=== PATIENT | male | born 1955 | race Caucasian/White ===

== ENCOUNTER 2018-09-07 15:18 | Inpatient (IN) ==
--- NOTE | 2018-09-07 21:08 | Internal Med History&Physical ---
Date of Encounter: 09/07/18 Time of Encounter: 21:05 Internal Medicine - H&P: HPI Chief complaint: Flank pain Admitted From: Intrahospital Transfer Plans for Post Hospital Care: Home History of present illness: Mr. Adams is a 63 year old male with past medical history of hx of recurrent renal calculi, HTN, DM-II, TIA (recently diagnosed [place] the [place]), ? memory loss, mood disorder who was transferred from the [facility] because of 6 mm renal calculi. He is an over all poor historian due to memory changes from recent TIA. HE uses a wheel chair to ambulate. According to [place] ED physician, pt was transferred from the [facility] due to 6 mm renal calculi. Pt states he had originally been admitted to the [facility] about a month ago and was discharged 3 weeks ago. States he went back in about one week ago but does not recall why he went back to the [facility]. At [facility] CT abd and pelvis Sep 06 2018 showed 6mm Calculus at left ureterovesical junction. and mild to moderate hydronephrosis Case discussed with urology and pt transferred to [place] for further management. Labs sep 05 2018 WBC 4.9, hgb 12.9, Na 138, K 3.4, mag Past Med Surg Social Fam HX - Past Medical History Medical history: arthritis, CVA, diabetes, glaucoma, hyperlipidemia, osteoporosis Additional medical history: Gout, diastolic heart failure, obesity, kidney stones Psychiatric history: depression - Past Surgical History Surgical History: cataract - Social History Smoking Status: Unknown if ever smoked Smokeless Tobacco Status: No Alcohol use: none Drug use: none - Family History Mother History Unknown: Yes Living Status: Father Living Status: Hx Family Cardiac Disorders: Yes Internal Medicine - H&P: Meds Allopurinol [Zyloprim] 300 mg PO DAILY 09/07/18 [History] Atorvastatin [Lipitor] 40 mg PO HS 09/07/18 [History] Chlorhexidine Rinse 15 ml MM BID 09/07/18 [History] Clopidogrel [Plavix] 75 mg PO DAILY 09/07/18 [History] DULoxetine [Cymbalta] 60 mg PO DAILY 09/07/18 [History] Furosemide [Lasix] 40 mg PO DAILY 09/07/18 [History] Insulin Regular Human [HumuLIN R] 0 unit 09/07/18 [History] Latanoprost/Pf [Latanoprost 0.005% Eye Drop] 7.5 ml OP DAILY 09/07/18 [History] Miconazole Nitrate [Lotrimin AF] TP BID 09/07/18 [History] Pioglitazone [Actos] 45 mg PO DAILY 09/07/18 [History] Tamsulosin [Flomax] 0.4 mg PO DAILY 09/07/18 [History] Timolol Maleate 0.5% 1 drop OP DAILY 09/07/18 [History] amLODIPine [Norvasc] 10 mg PO DAILY 09/07/18 [History] Allergy/AdvReac Type Severity Reaction Status Date / Time olmesartan [From Benicar] AdvReac Hypotension Verified 09/07/18 20:47 All Systems PM: A 10-system review of systems was performed and is negative for pertinent findings except as documented above in the HPI. - Constitutional Vitals: Temp Pulse Resp BP Pulse Ox 98.1 F 88 14 118/78 98 09/07/18 18:27 09/07/18 18:27 09/07/18 18:27 09/07/18 18:27 09/07/18 18:27 General appearance: Present: A&O X 3 Exam: . - Head Head exam: Present: atraumatic, normocephalic - Eye Eye exam: Present: PERRL, conjuntiva pink, sclera anicteric Pupils: Present: PERRL - Neck Neck exam general surgery: Present: supple, trachea midline. Absent: lymphadenopathy - Respiratory Respiratory exam: Present: CTAB. Absent: accessory muscle use, rales, rhonchi, wheezes - Cardiovascular Cardiovascular exam: Present: RRR, +S1, +S2. Absent: diastolic murmur, gallop, rubs, systolic murmur - GI/Abdominal GI/Abdominal exam: Present: normal bowel sounds, soft, no peritoneal signs. Absent: distended, tenderness - Extremities Exam Extremities exam: Present: warm, radial pulses palpable and symmetrical. Absent: calf tenderness, cyanotic, pedal edema - Neurological Exam Neurological exam: Present: CN II-XII intact, oriented X3, no focal deficits. Absent: pronater drift, facial droop, speech deficit - Skin Skin exam: Present: dry, intact - Assessment and plan (1) Renal calculi Current Visit: Yes Status: Acute Assessment and plan: Pt does not report flank pain at this time. States he gets kidney stones and generally passes them. (2) HTN (hypertension) Current Visit: Yes Status: Acute Assessment and plan: [facility] Qualifiers: Qualified Code(s): I10 - Essential (primary) hypertension (3) Type II diabetes mellitus Current Visit: Yes Status: Acute Assessment and plan: Will place on SSI and resume home medication. Will monitor glucose. Qualifiers: Qualified Code(s): E11.9 - Type 2 diabetes mellitus without complications (4) History of stroke Current Visit: Yes Status: Acute Assessment and plan: [facility] seen [place] [facility] [place] a few weeks ago for this. Resume on statin and plavix - Time Spent With Patient Total time spent is greater than 50% in coordination of care (as documented) at patient's floor/unit and/or counseling patient: 25 - 35 minutes
[2018-09-07] MEDS ORDERED: Naloxone 0.4 MG/ML INJ IVP PRN (21:09)
[2018-09-07] MEDS ORDERED: Acetaminophen 325 MG TABLET PO PRN (21:09)
[2018-09-07] MEDS ORDERED: Dextrose Gel 15 GM/37.5 ML TUBE PO PRN ×2 (21:20)
[2018-09-07] MEDS ORDERED: D5% in Water 1,000 ML IVC PRN (21:20)
[2018-09-07] MEDS ORDERED: *HR* Dextrose 50 % in Water (Syg) 50 ML SYRINGE IVP PRN (21:20)
[2018-09-07 22:59] LABS: Basophils % 0.5 %; Eosinophils # 0.1 K/mcL (0.0-0.6); Eosinophils % 1.1 %; Hematocrit 36.3 % (37.5-50.1); Immature Granulocytes % 0.2 % (0-4); Lymphocytes % 17.6 %; Mean Corpuscular HGB Conc 33.1 g/dL (31.6-35.5); Mean Corpuscular Hemoglobin 33.5 pg (28.0-33.3); Mean Corpuscular Volume 101.4 fL (83.0-100.0); Mean Platelet Volume 12.1 fL (9.4-12.4); Monocytes # 0.4 K/mcL (0.0-1.3); Monocytes % 6.9 %; Neutrophils # 4.1 K/mcL (1.6-8.9); Platelet Count 110 K/mcL (140-400); Red Blood Count 3.58 M/mcL (4.19-5.50); Red Cell Distribution Width 14.5 % (11.5-14.5); Segmented Neutrophils % 73.7 %
[2018-09-07 23:15] LABS: Calcium 9.2 mg/dL (8.6-10.3); Magnesium 1.6 mg/dL (1.6-2.6); Potassium 3.6 mEq/L (3.5-5.1)
[2018-09-08 01:18] LABS: Bilirubin,Urine Negative (Negative); Blood,Urine Moderate (Negative); Clarity,Urine Clear (Clear); Color,Urine Yellow (Yellow); Glucose,Urine (UA) Normal (Normal); Ketones,Urine Negative (Negative); Leukocyte Esterase,Urine Negative (Negative); Nitrite,Urine Negative (Negative); Protein,Urine Trace mg/dL (Neg-Trace); Specific Gravity,Urine 1.015 (1.010-1.025); Urobilinogen,Urine Normal (Normal)
[2018-09-08 01:21] LABS: Bacteria,Urine None Seen per hpf (None-Few); Hyaline Casts,Urine None Seen per lpf (None-Few); Squamous Epithelial Cell,Urine None Seen per lpf (None-Few); WBC,Urine 0-3 per hpf (0-3)
[2018-09-08] MEDS: *HR* HYDROcodone/Acet 5/325 mg TABLET PO PRN (01:39)
[2018-09-08 05:22] LABS: Basophils % 0.4 %; Eosinophils # 0.1 K/mcL (0.0-0.6); Eosinophils % 2.1 %; Hemoglobin 11.1 g/dL (12.9-16.9); Immature Granulocytes % 0.4 % (0-4); Lymphocytes # 1.3 K/mcL (0.6-4.6); Lymphocytes % 24.9 %; Mean Corpuscular HGB Conc 32.6 g/dL (31.6-35.5); Mean Corpuscular Hemoglobin 32.9 pg (28.0-33.3); Mean Corpuscular Volume 100.9 fL (83.0-100.0); Mean Platelet Volume 12.2 fL (9.4-12.4); Monocytes # 0.5 K/mcL (0.0-1.3); Monocytes % 9.9 %; Neutrophils # 3.2 K/mcL (1.6-8.9); Platelet Count 106 K/mcL (140-400); Red Blood Count 3.37 M/mcL (4.19-5.50); Red Cell Distribution Width 14.6 % (11.5-14.5); Segmented Neutrophils % 62.3 %
[2018-09-08 05:40] LABS: Calcium 8.8 mg/dL (8.6-10.3); Potassium 3.2 mEq/L (3.5-5.1)
[2018-09-08] MEDS: Insulin LISPRO 300 UNITS/3 ML VIAL SQ SCH ×3 (08:10→17:23)
[2018-09-08] MEDS: amLODIPine 5 MG TABLET PO SCH (08:14)
[2018-09-08] MEDS: Furosemide 40 MG TABLET PO SCH (08:14)
--- NOTE | 2018-09-08 08:52 | Urology - Consult Note ---
Date of Encounter: 09/08/18 Time of Encounter: 08:49 - Assessment and Plan (1) Left ureteral stone Current Visit: Yes Status: Acute Assessment and plan: We will plan on seeing if the patient can pass his stone spontaneously with IV fluids. If patient fails to elicit will be scheduled tomorrow for stone extraction. (2) Type II diabetes mellitus Current Visit: Yes Status: Acute Assessment and plan: Patient will need tight blood sugar control while in the hospital. Patient was placed on diabetic diet. Qualifiers: Qualified Code(s): E11.9 - Type 2 diabetes mellitus without complications Urology CN:HPI Consult date: 09/08/18 Reason for consult Urology: Hydronephrosis Requesting physician: Fiorella Urias History of present illness: Hill is a 63-year-old male who was transferred from the [facility] yesterday secondary to having a left ureteral stone. Patient states that his pain is controlled at this time. Patient would like to have his stone removed. Patient currently denies any nausea or vomiting. No fevers. Pain is a 0 out of 10 with no radiation at this time. Patient does have relatively poorly controlled diabetes. His blood sugar was above 200 upon admission. Past Med Surg Social Fam HX - Past Medical History Medical history: arthritis, CVA, diabetes, glaucoma, hyperlipidemia, osteoporosis Additional medical history: Gout, diastolic heart failure, obesity, kidney sto oumar Psychiatric history: depression - Past Surgical History Surgical History: cataract - Social History Smoking Status: Unknown if ever smoked Smokeless Tobacco Status: No Alcohol use: none Drug use: none - Family History Mother History Unknown: Yes Living Status: Father Living Status: Hx Family Cardiac Disorders: Yes Medications and Allergies Allopurinol [Zyloprim] 300 mg PO DAILY 09/07/18 [History] Atorvastatin [Lipitor] 40 mg PO HS 09/07/18 [History] Chlorhexidine Rinse 15 ml MM BID 09/07/18 [History] Clopidogrel [Plavix] 75 mg PO DAILY 09/07/18 [History] DULoxetine [Cymbalta] 60 mg PO DAILY 09/07/18 [History] Furosemide [Lasix] 40 mg PO DAILY 09/07/18 [History] Insulin Regular Human [HumuLIN R] 0 unit 09/07/18 [History] Latanoprost/Pf [Latanoprost 0.005% Eye Drop] 1 drop BOTH EYES DAILY 09/07/18 [History] Miconazole Nitrate [Lotrimin AF] TP BID 09/07/18 [History] Pioglitazone [Actos] 45 mg PO DAILY 09/07/18 [History] Tamsulosin [Flomax] 0.4 mg PO DAILY 09/07/18 [History] Timolol Maleate 0.5% 1 drop BOTH EYES DAILY 09/07/18 [History] amLODIPine [Norvasc] 10 mg PO DAILY 09/07/18 [History] Allergy/AdvReac Type Severity Reaction Status Date / Time olmesartan [From [facility]] AdvReac Hypotension Verified 09/07/18 20:47 Review of Systems - Constitutional no chills, no fever(s) - EENT Nose, mouth and throat: no dizziness - Cardiovascular no dyspnea - Respiratory no cough, no dyspnea - Gastrointestinal no abdominal pain, no nausea, no vomiting - Musculoskeletal no back pain, no muscle weakness - Integumentary no erythema, no swelling - Neurological no sensory deficit - Psychiatric no confusion, no depression - Hematologic/Lymphatic no easy bleeding, no lymphadenopathy - Allergic/Immunologic no wheezing Exam Initial Vital Signs Temp Pulse Resp BP Pulse Ox 98.1 F 88 14 118/78 98 09/07/18 18:27 09/07/18 18:27 09/07/18 18:27 09/07/18 18:27 09/07/18 18:27 General/Neuological: alert and oriented x 3 Eyes: normal pupils, non-icteric Neck: no lymphadenopathy noted, supple to touch Cardiovascular: RRR, no murmurs Respiratory: normal respiratory effort, clear bilaterally ABD: soft, nontender, no masses palpated, good bowel sounds Back: no pain on percussion bilaterally Skin: no rashes noted Musculoskeletal: normal gait, FROMx4 Urology Results - Labs 09/08/18 05:08 09/08/18 05:08 Abnormal lab results RBC 3.37 M/mcL (4.19-5.50) L 09/08/18 05:08 Hgb 11.1 g/dL (12.9-16.9) L 09/08/18 05:08 Hct 34.0 % (37.5-50.1) L 09/08/18 05:08 MCV 100.9 fL (83.0-100.0) H 09/08/18 05:08 RDW 14.6 % (11.5-14.5) H 09/08/18 05:08 Plt Count 106 K/mcL (140-400) L 09/08/18 05:08 Potassium 3.2 mEq/L (3.5-5.1) L 09/08/18 05:08 Carbon Dioxide 30 mEq/L (23-29) H 09/08/18 05:08 BUN 30 mg/dL (8-23) H 09/08/18 05:08 Creatinine 1.85 mg/dL (0.70-1.30) H 09/08/18 05:08 Est GFR ( Amer) 45 (> 60) L 09/08/18 05:08 Est GFR (Non-Af Amer) 37 (> 60) L 09/08/18 05:08 Glucose 144 mg/dL (70-105) H 09/08/18 05:08 Urine Blood Moderate (Negative) H 09/08/18 01:00 Urine Microscopic RBC 3-5 per hpf (0-3) H 09/08/18 01:00 Diabetes panel 09/07/18 09/08/18 Range/Units 22:42 05:08 Sodium 137 138 (136-145) mEq/L Potassium 3.6 3.2 L (3.5-5.1) mEq/L Chloride 100 100 (98-107) mEq/L Carbon Dioxide 32 H 30 H (23-29) mEq/L BUN 32 H 30 H (8-23) mg/dL Creatinine 2.05 H 1.85 H (0.70-1.30) mg/dL Glucose 202 H 144 H (70-105) mg/dL Calcium 9.2 8.8 (8.6-10.3) mg/dL Calcium panel 09/07/18 09/08/18 Range/Units 22:42 05:08 Calcium 9.2 8.8 (8.6-10.3) mg/dL Pituitary panel 09/07/18 09/08/18 Range/Units 22:42 05:08 Sodium 137 138 (136-145) mEq/L Potassium 3.6 3.2 L (3.5-5.1) mEq/L Chloride 100 100 (98-107) mEq/L Carbon Dioxide 32 H 30 H (23-29) mEq/L BUN 32 H 30 H (8-23) mg/dL Creatinine 2.05 H 1.85 H (0.70-1.30) mg/dL Glucose 202 H 144 H (70-105) mg/dL Calcium 9.2 8.8 (8.6-10.3) mg/dL Adrenal panel 09/07/18 09/08/18 Range/Units 22:42 05:08 Sodium 137 138 (136-145) mEq/L Potassium 3.6 3.2 L (3.5-5.1) mEq/L Chloride 100 100 (98-107) mEq/L Carbon Dioxide 32 H 30 H (23-29) mEq/L BUN 32 H 30 H (8-23) mg/dL Creatinine 2.05 H 1.85 H (0.70-1.30) mg/dL Glucose 202 H 144 H (70-105) mg/dL Calcium 9.2 8.8 (8.6-10.3) mg/dL All other labs normal. Consult Discharge Plan - Plan [facility]errals: [facility] [Primary Care Provider] -
[2018-09-08] MEDS: Latanoprost 2.5 ML BOTTLE BOTH EYES SCH (09:43)
[2018-09-08] MEDS: Miconazole 2% ointment 114 GM TUBE TP SCH ×2 (09:43→20:24)
--- NOTE | 2018-09-08 18:29 | Internal Med Progress Note ---
Hospitalist Progress Note - Encounter Date of Encounter: 09/08/18 Time of Encounter: 18:23 - Subjective Interval History: Pt denies having flank pain this morning. He denies fever, chills, N/V or diarrhea. He denies CP or SOB. - Exam Vitals: Temp Pulse Resp BP Pulse Ox 97.6 F 88 15 118/69 93 09/08/18 15:21 09/08/18 15:21 09/08/18 15:21 09/08/18 15:21 09/08/18 15:21 Exam: General appearance: Present: A&O X 3 Exam: - Head Head exam: Present: atraumatic, normocephalic - Eye Eye exam: Present: PERRL, conjuntiva pink, sclera anicteric Pupils: Present: PERRL - Neck Neck exam general surgery: Present: supple, trachea midline. Absent: lymphadenopathy - Respiratory Respiratory exam: Present: CTAB. Absent: accessory muscle use, rales, rhonchi, wheezes - Cardiovascular Cardiovascular exam: Present: RRR, +S1, +S2. Absent: diastolic murmur, gallop, rubs, systolic murmur - GI/Abdominal GI/Abdominal exam: Present: normal bowel sounds, soft, no peritoneal signs. Absent: distended, tenderness - Extremities Exam Extremities exam: Present: warm, radial pulses palpable and symmetrical. Absent: calf tenderness, cyanotic, pedal edema - Neurological Exam Neurological exam: Present: CN II-XII intact, oriented X3, no focal deficits. Absent: pronater drift, facial droop, speech deficit - Skin Skin exam: Present: dry, intact - Assessment and Plan (1) Renal calculi Current Visit: Yes Status: Acute Assessment and Plan: Pt does not report flank pain at this time. States he gets kidney stones and generally passes them. Seen by Urology and states continue on fluids for now and hopefully he passes the stone. If not possible stone extraction 09/09/2018. (2) HTN (hypertension) Current Visit: Yes Status: Acute Assessment and Plan: [place] (3) Type II diabetes mellitus Current Visit: Yes Status: Acute Assessment and Plan: Will place on SSI and resume home medication. Will continue to monitor glucose. (4) History of stroke Current Visit: Yes Status: Acute Assessment and Plan: Pt seen at the [place] a few weeks ago for was what documented as TIA. Resume on statin and plavix DVT Prophylaxis: SCD - Summary of Assessment and Plan Summary of Assessment and Plan: Mr. Adams is a 63 year old male with past medical history of hx of recurrent renal calculi, HTN, DM-II, TIA (recently diagnosed at the [place]), ? memory loss, mood disorder who was transferred from the [place] because of 6 mm renal calculi. He is an over all poor historian due to memory changes from recent TIA. He uses a wheel chair to ambulate. According to [place] ED physician, pt was transferred from the [place] due to 6 mm renal calculi. Pt states he had originally been admitted to the [place] about a month ago and was discharged 3 weeks ago. States he went back in about one week ago but does not recall why he went back to the [place]. - Time Spent with Patient Total time spent is greater than 50% in coordination of care (as documented) at patient's floor/unit and/or counseling patient: less than 15 minutes Plan of Care Discussed with: patient Internal Medicine: Result - Labs CBC & Chem 7: 09/08/18 05:08 09/08/18 05:08 Labs: Short CBC 09/07/18 09/08/18 Range/Units 22:42 05:08 WBC 5.6 5.1 (4.3-11.1) K/mcL Hgb 12.0 L 11.1 L (12.9-16.9) g/dL Hct 36.3 L 34.0 L (37.5-50.1) % Plt Count 110 L 106 L (140-400) K/mcL Neutrophils # 4.1 3.2 (1.6-8.9) K/mcL BMP 09/07/18 09/08/18 22:42 05:08 Sodium 137 138 Potassium 3.6 3.2 L Chloride 100 100 Carbon Dioxide 32 H 30 H BUN 32 H 30 H Creatinine 2.05 H 1.85 H Glucose 202 H 144 H Calcium 9.2 8.8 Urine 09/08/18 Range/Units 01:00 Urine Color Yellow (Yellow) Urine Clarity Clear (Clear) Urine pH 6.0 (5.0-8.0) pH Units Ur Specific [place] 1.015 (1.010-1.025) Urine Protein Trace (Neg-Trace) mg/dL Urine Glucose (UA) Normal (Normal) mg/dL Consult Discharge Plan - Plan [facility]errals: [facility] [Primary Care Provider] - (2) HTN (hypertension) Qualifiers: Qualified Code(s): I10 - Essential (primary) hypertension (3) Type II diabetes mellitus Qualifiers: Qualified Code(s): E11.9 - Type 2 diabetes mellitus without complications
[2018-09-08] MEDS ORDERED: D5% in Water 1,000 ML IVC PRN (18:38)
[2018-09-08] MEDS ORDERED: *HR* Dextrose 50 % in Water (Syg) 50 ML SYRINGE IVP PRN (18:38)
[2018-09-08] MEDS ORDERED: Dextrose Gel 15 GM/37.5 ML TUBE PO PRN ×2 (18:38)
[2018-09-08 20:49] LABS: Estimated Average Glucose 148 mg/dl; Hemoglobin A1C 6.8 %
--- NOTE | 2018-09-09 07:23 | Urology Progress Note ---
Date of Encounter: 09/09/18 Time of Encounter: 07:22 - Assessment and Plan (1) Left ureteral stone Current Visit: Yes Status: Acute Assessment and plan: patient passed stone. will cancel surgery. ok to discharge from urology sta ndpoint. will have office get follow up appt through the [place]. (2) Type II diabetes mellitus Current Visit: Yes Status: Acute Qualifiers: Qualified Code(s): E11.9 - Type 2 diabetes mellitus without complications Progress Note Narrative: patient seen. patient passed large stone last night. no further pain. Objective Initial Vital Signs Temp Pulse Resp BP Pulse Ox 98.1 F 88 14 118/78 98 09/07/18 18:27 09/07/18 18:27 09/07/18 18:27 09/07/18 18:27 09/07/18 18:27 - General physical appearance Present: well developed, well nourished - Respiratory Present: normal expansion - Abdomen Present: soft. Absent: tender - Labs 09/08/18 05:08 09/08/18 05:08 Diabetes panel 09/08/18 Range/Units 18:45 Hemoglobin A1c 6.8 H ( - 5.6) % Consult Discharge Plan - Plan Referrals: Alvaro Winkler MD [Partnered Physician] - [place],PCP [Primary Care Provider] -
[2018-09-09] MEDS: Insulin LISPRO 300 UNITS/3 ML VIAL SQ SCH ×3 (07:43→18:16)
[2018-09-09] MEDS: Furosemide 40 MG TABLET PO SCH (07:50)
[2018-09-09] MEDS: amLODIPine 5 MG TABLET PO SCH (07:50)
[2018-09-09] MEDS: *HR* Pioglitazone 45 MG TABLET PO SCH (07:50)
--- NOTE | 2018-09-09 10:31 | Discharge Summary ---
- NOTES TO OUTPATIENT PROVIDER Notes to Outpatient Provider: PCP in 5 to 7 days Orders not resulted at time of discharge: Pending orders 09/08/18 01:00 Urinalysis Reflex Cult & Micro [URIN] Stat Date of Encounter: 09/09/18 Time of Encounter: 10:29 - Discharge Diagnosis (1) Renal calculi Priority: Primary Status: Acute Assessment and Plan: Pt does not report flank pain at this time. States he gets kidney stones and generally passes them. Seen by Urology and states continue on fluids and hopefully he passes the stone. Pt passed the stone over night so urology cancelled surgery and states ok to DC home. (2) Acute kidney injury Priority: Secondary Status: Acute Assessment and Plan: Present on admission. Slowly improving. BMP this am 09/09/2018 showed BUN and Cr. (3) HTN (hypertension) Priority: Secondary Status: Acute Assessment and Plan: [facility] Qualifiers: Qualified Code(s): I10 - Essential (primary) hypertension (4) Type II diabetes mellitus Priority: Secondary Status: Acute Assessment and Plan: Was placed on SSI, can resume home medication. Pt should continue to monitor glucose. Qualifiers: Qualified Code(s): E11.9 - Type 2 diabetes mellitus without complications (5) History of stroke Priority: Secondary Status: Acute Assessment and Plan: Pt seen at the [place] a few weeks ago for was what documented as TIA. Resume on statin and plavix Hospital course: Mr. Adams is a 63 year old male Discharge discussed with: patient - Time Spent with Patient Total time spent providing and/or coordinating discharge services: Greater than 30 minutes - Discharge Medications Home Medications: Allopurinol [Zyloprim] 300 mg PO DAILY 09/07/18 [History] Atorvastatin [Lipitor] 40 mg PO HS 09/07/18 [History] Clopidogrel [Plavix] 75 mg PO DAILY 09/07/18 [History] DULoxetine [Cymbalta] 60 mg PO DAILY 09/07/18 [History] Furosemide [Lasix] 40 mg PO DAILY 09/07/18 [History] Latanoprost/Pf [Latanoprost 0.005% Eye Drop] 1 drop BOTH EYES DAILY 09/07/18 [History] Pioglitazone [Actos] 45 mg PO DAILY 09/07/18 [History] Tamsulosin [Flomax] 0.4 mg PO DAILY 09/07/18 [History] Timolol Maleate 0.5% 1 drop BOTH EYES DAILY 09/07/18 [History] amLODIPine [Norvasc] 10 mg PO DAILY 09/07/18 [History] Allergies/Adverse Reactions: Allergy/AdvReac Type Severity Reaction Status Date / Time olmesartan [From Benicar] AdvReac Hypotension Verified 09/07/18 20:47 Date of admission: 09/07/18 18:01 [facility] care physician[facility] Consults: 09/07/18 21:12 Consult to Urology [CONS] Routine Consulting Provider: Urology Megan Reason for Consult: renal calculi Call Completed: Yes Discharging clinician: Fiorella Urias Anticipated date of discharge: 09/09/18 - Constitutional Vitals: Temp Pulse Resp BP Pulse Ox 97.6 F 97 16 125/69 95 09/09/18 06:44 09/09/18 06:44 09/09/18 06:44 09/09/18 06:44 09/09/18 06:44 General appearance: Present: A&O X 3 Exam: General appearance: Present: A&O X 3 Exam: - Head Head exam: Present: atraumatic, normocephalic - Eye Eye exam: Present: PERRL, conjuntiva pink, sclera anicteric Pupils: Present: PERRL - Neck Neck exam general surgery: Present: supple, trachea midline. Absent: lymph adenopathy - Respiratory Respiratory exam: Present: CTAB. Absent: accessory muscle use, rales, rhonchi, wheezes - Cardiovascular Cardiovascular exam: Present: RRR, +S1, +S2. Absent: diastolic murmur, gallop, rubs, systolic murmur - GI/Abdominal GI/Abdominal exam: Present: normal bowel sounds, soft, no peritoneal signs. Absent: distended, tenderness - Extremities Exam Extremities exam: Present: warm, radial pulses palpable and symmetrical. Absent: calf tenderness, cyanotic, pedal edema - Neurological Exam Neurological exam: Present: CN II-XII intact, oriented X3, no focal deficits. Absent: pronater drift, facial droop, speech deficit - Skin Skin exam: Present: dry, intact - Patient Status Disposition: Home, Self-Care Condition: Good Overall status at discharge: patient is back to baseline - Discharge Instructions Follow Up With: Alvaro Winkler MD [Partnered Physician] - [place],PCP [Primary Care Provider] - - Diet and Activity Activity: increase activity as tolerated Diet: diabetic diet
[2018-09-09] MEDS: Latanoprost 2.5 ML BOTTLE BOTH EYES SCH (11:34)
[2018-09-09] MEDS: Miconazole 2% ointment 114 GM TUBE TP SCH ×2 (11:34→20:32)
[2018-09-09 11:39] LABS: Calcium 9.1 mg/dL (8.6-10.3); Potassium 3.3 mEq/L (3.5-5.1)
[2018-09-09] MEDS ORDERED: 0.9 % Sodium Chloride 500 ML IVC PRN (14:24)
[2018-09-09] MEDS: 0.9 % Sodium Chloride 1,000 ML IVC SCH ×2 (15:08→20:30)
[2018-09-09 16:46] LABS: Calcium 8.7 mg/dL (8.6-10.3); Potassium 3.4 mEq/L (3.5-5.1)
[2018-09-10 04:31] LABS: BUN/Creatinine Ratio 17 (6-26); Blood Urea Nitrogen 24 mg/dL (8-23); Calcium 8.8 mg/dL (8.6-10.3); Carbon Dioxide 29 mEq/L (23-29); Chloride 102 mEq/L (98-107); Glucose 146 mg/dL (70-105); Osmolality,Calculated 295 (280-300); Potassium 3.3 mEq/L (3.5-5.1); Sodium 139 mEq/L (136-145); eGFR For Non-African Americans 52 (> 60)
[2018-09-10] MEDS: *HR* Pioglitazone 45 MG TABLET PO SCH (07:41)
[2018-09-10] MEDS: Latanoprost 2.5 ML BOTTLE BOTH EYES SCH (07:42)
[2018-09-10] MEDS: Furosemide 40 MG TABLET PO SCH (07:42)
[2018-09-10] MEDS: Miconazole 2% ointment 114 GM TUBE TP SCH ×2 (07:42→19:46)
[2018-09-10] MEDS: Insulin LISPRO 300 UNITS/3 ML VIAL SQ SCH ×4 (07:43→18:37)
[2018-09-10] MEDS: amLODIPine 5 MG TABLET PO SCH (07:45)
--- NOTE | 2018-09-10 13:59 | Internal Med Progress Note ---
Hospitalist Progress Note - Encounter Date of Encounter: 09/10/18 Time of Encounter: 13:20 - Subjective Interval History: Mr. Adams is a 63 year old male with past medical history of hx of recurrent renal calculi, HTN, DM-II, TIA (recently diagnosed at the [place]), ? memory loss, mood disorder who was transferred from the [place] because of 6 mm renal calculi. At the [place] CT abd and pelvis Sep 06 2018 showed 6mm Calculus at left ureterovesical junction. and mild to moderate hydronephrosis. Pt was admitted in the hospital and started him on IV hydration and IV analgesics. He did pass the stone and his flank pain relived now. Pt was evaluated by urology and did not recommend any further recommendations. Our nursing staff did talk to [facility] medical floor, who recommend him to d/c home if he is stable from renal calculi stand point. - Exam Vitals: Temp Pulse Resp BP Pulse Ox 98.1 F 99 18 108/57 97 09/10/18 10:29 09/10/18 10:29 09/10/18 10:29 09/10/18 10:29 09/10/18 10:29 Exam: Gen: Alert, awake, Oriented to time,place and person Chest: Diminished breath sounds B/L, No wheezing, No crackles, No rales Heart: S1S2+ RRR No murmurs Abd: Soft, NT, BS +, No organomegaly Ext: No edema, pulses are palpable, No calf tenderness Neuro : Benign findings Skin: No rash. - Assessment and Plan (1) Acute kidney injury Current Visit: Yes Status: Acute Assessment and Plan: Present on admission. Due to obstructive uropathy Slowly improving. Cr came down to 1.38 today Medically stable to d.c home today (2) Renal calculi Current Visit: Yes Status: Acute Assessment and Plan: Pt does not report flank pain at this time Pt passed the stone No further work up needed from Urology stand point he is ok to go home (3) HTN (hypertension) Current Visit: Yes Status: Acute Assessment and Plan: stable with home meds Norvasc (4) Type II diabetes mellitus Current Visit: Yes Status: Acute Assessment and Plan: Was placed on SSI, can resume home medication. Pt should continue to monitor glucose. (5) History of stroke Current Visit: Yes Status: Acute Assessment and Plan: Pt seen at the [place] a few weeks ago for was what documented as TIA. Resume on statin and plavix - Time Spent with Patient Total time spent is greater than 50% in coordination of care (as documented) at patient's floor/unit and/or counseling patient: Internal Medicine: Result - Labs CBC & Chem 7: 09/08/18 05:08 09/10/18 03:59 Labs: BMP 09/09/18 09/10/18 16:04 03:59 Sodium 133 L 139 Potassium 3.4 L 3.3 L Chloride 103 102 Carbon Dioxide 30 H 29 BUN 26 H 24 H Creatinine 1.55 H 1.38 H Glucose 162 H 146 H Calcium 8.7 8.8 Consult Discharge Plan - Plan Referrals: Alvaro Winkler MD [Partnered Physician] - [place],PCP [Primary Care Provider] - (3) HTN (hypertension) Qualifiers: Qualified Code(s): I10 - Essential (primary) hypertension (4) Type II diabetes mellitus Qualifiers: Qualified Code(s): E11.9 - Type 2 diabetes mellitus without complications
[2018-09-10] MEDS: *HR* HYDROcodone/Acet 5/325 mg TABLET PO PRN (19:41)
[2018-09-11 04:43] VITALS: BP 120/73
== END 2018-09-11 06:18 | disposition home or self-care (01) | DRG 694 ==
LOC: 3ANU 18:01
PROVIDERS: ADMIT Internal Medicine; ATTEND Internal Medicine